=== PATIENT | female | born 1965 | race Two or more races ===

== ENCOUNTER 2019-08-01 12:16 | Emergency (ER) | payer BC ==
[~2019-08-01] VITALS: Ht 170.2 cm; Wt 90.7 kg
[2019-08-01] MEDS: Morphine Sulfate 4mg/ml Inj (IV USE ONLY) IVP ONE ×2 (12:45→13:05)
[2019-08-01] MEDS ORDERED: Isovue-300 100ml vial INJ PRN (12:45)
--- NOTE | 2019-08-01 13:00 | NUR ---
ED Nurse Note: Patient presensts to ER due to abdominal pain x 2 days; reports no N/V or D. Patient states patient has similar pain about 7 month ago after she has some food in [place]. Reports no fever or chills. Patient awake, alert, oriented x 4. Regular, unlabored breathing noted. No guarding noted.
[2019-08-01 13:10] LABS: APPEARANCE,URINE CLEAR; BILIRUBIN, URINE NEGATIVE (NEGATIVE); COLOR,URINE PALE YELLOW; GLUCOSE, URINE (UA) NEGATIVE (NEGATIVE); KETONES,URINE NEGATIVE (NEGATIVE); LEUKOCYTE ESTERASE ,URINE NEGATIVE (NEGATIVE); NITRITE,URINE NEGATIVE (NEGATIVE); PH,URINE 8 (4.5-8.0); PROTEIN,URINE 2+ (NEGATIVE); UROBILINOGEN,URINE NORMAL MG/DL (0.0-1.0)
[2019-08-01 13:16] LABS: BASOPHILS % (AUTO) 1.3 % (0.0-2.0); EOSINOPHILS % (AUTO) 0.8 % (0.0-3.0); HEMATOCRIT 40.1 % (37.0-47.0); HEMOGLOBIN 13.7 G/DL (12.0-16.0); LYMPHOCYTES % (AUTO) 20.3 % (20.0-45.0); MEAN CORPUSCULAR VOLUME 88 FL (80-99); MONOCYTES % (AUTO) 7.8 % (1.0-10.0); NEUTROPHILS % (AUTO) 69.8 % (45.0-75.0); PLATELET COUNT 206 K/UL (150-450); RED BLOOD COUNT 4.55 M/UL (4.20-5.40); RED CELL DISTRIBUTION WIDTH 11.4 % (11.6-14.8); WHITE BLOOD COUNT 7.4 K/UL (4.8-10.8)
[2019-08-01 13:32] LABS: ANION GAP 8 mmol/L (5-15); BLOOD UREA NITROGEN 8 mg/dL (7-18); CALCIUM 8.6 MG/DL (8.5-10.1); CARBON DIOXIDE 30 MMOL/L (21-32); CHLORIDE 103 MMOL/L (98-107); CREATININE 0.7 MG/DL (0.55-1.30); SODIUM 141 MMOL/L (136-145)
[2019-08-01 13:42] LABS: ALANINE AMINOTRANSFERASE 41 U/L (12-78); ALBUMIN 3.5 G/DL (3.4-5.0); ALBUMIN/GLOBULIN RATIO 0.8 (1.0-2.7); ALKALINE PHOSPHATASE 84 U/L (46-116); ASPARTATE AMINO TRANSFERASE 26 U/L (15-37); BILIRUBIN,TOTAL 1.1 MG/DL (0.2-1.0)
[2019-08-01 13:43] LABS: BILIRUBIN,DIRECT 0.2 MG/DL (0.0-0.3)
--- NOTE | 2019-08-01 13:44 | NUR ---
ED Nurse Note: Patient taken to CT via gurney by olu Parish.
--- NOTE | 2019-08-01 14:11 | Diagnostic Imaging Report ---
Indication: Abdominal pain Technique: Continuous helical transaxial imaging of the abdomen and pelvis was obtained from the lung bases to the pubic symphysis during intravenous contrast administration. Coronal 2-D reformats were also obtained. Study obtained in a Siemens sensation [address] Automatic Exposure Control was utilized. Total Dose length Product (DLP): 1128.[address] Dose Index Volume (CTDIvol): 18.4 mGy Comparison: None Findings: There is mild posterior basilar atelectasis. Cholecystectomy noted. There is mild bilateral hydroureteronephrosis demonstrated. There are no definite stones identified. Image quality is limited because of beam starvation artifact. The appendix is normal. The liver and spleen, pancreas and adrenal glands appear normal. There is no evidence of bowel obstruction. The uterus is noted. Bladder is unremarkable IMPRESSION: Mild bilateral hydroureteronephrosis. No definite obstructing stone identified. Consider pyelonephritis/UTI. Correlate clinically. Normal appendix. Status post cholecystectomy [place] [facility] [place] [employer] and the scans are performed using dose optimization techniques as appropriate to a performed exam including Automatic Exposure control.
[2019-08-01] MEDS ORDERED: Lidocaine 2% Visc 15ml soln ORAL ONE (14:15)
[2019-08-01] MEDS ORDERED: Dicyclomine HCl 10mg/5ml oral soln ORAL ONE (14:15)
[2019-08-01] MEDS ORDERED: Mylanta II UD 30ml ORAL ONE (14:15)
[2019-08-01] MEDS ORDERED: RANITIDINE HCL150 MG ORAL (14:30)
[2019-08-01] MEDS ORDERED: COLACE100 MG ORAL (14:30)
[2019-08-01] MEDS ORDERED: SIMETHICONE80 MG ORAL (14:30)
[2019-08-01 14:35] VITALS: BP 133/61
--- NOTE | 2019-08-01 14:36 | NUR ---
ER DISCHARGE NOTE: Patient is cleared to be discharged per ERMD, pt is aox4, on room air, with stable vital signs. pt was given dc and prescription instructions, pt was able to verbalize understanding, pt id band and iv site removed without complications. pt is able to ambulate with steady gait. pt took all belongings.
--- NOTE | 2019-08-02 16:31 | Emergency Room Report ---
History of Present Illness General Chief Complaint: Abdominal Pain Source: Patient Present Illness HPI 53-year-old female presents ED for evaluation. Complaining of abdominal pain for the last 3 days. Pain is generalized, sharp, 8 out of 10, nonradiating. Sometimes her abdomen feels bloated then resolves. Notes nausea, denies vomiting. Denies any diarrhea. Denies fevers or chills. No other aggravating relieving factors. Denies any other associated symptoms Allergies: Coded Allergies: No Known Allergies (Unverified , 08/01/19) Patient History Past Medical History: none Past Surgical History: none Pertinent Family History: none Social History: Denies: smoking, alcohol use, drug use Now: No Immunizations: UTD Reviewed Nursing Documentation: PMH: Agreed; PSxH: Agreed Nursing Documentation-PMH Past Medical History: No Stated History Review of Systems All Other Systems: negative except mentioned in HPI Physical Exam Vital Signs Date Time Temp Pulse Resp B/P (MAP) Pulse Ox O2 Delivery O2 Flow Rate FiO2 08/01/19 12:30 99.7 85 15 113/77 (89) 98 Room Air Sp02 EP Interpretation: reviewed, normal General Appearance: no apparent distress, alert, GCS 15, non-toxic Head: normocephalic, atraumatic Eyes: bilateral eye normal inspection, bilateral eye PERRL ENT: hearing grossly normal, normal pharynx, no angioedema, normal voice Neck: full range of motion, supple/symm/no masses Respiratory: chest non-tender, lungs clear, normal breath sounds, speaking full sentences Cardiovascular #1: regular rate, rhythm, no edema Cardiovascular #2: 2+ carotid (R), 2+ carotid (L), 2+ radial (R), 2+ radial (L) , 2+ dorsalis pedis (R), 2+ dorsalis pedis (L) Gastrointestinal: normal bowel sounds, soft, non-distended, guarding, tenderness Rectal: deferred Genitourinary: normal inspection, no CVA tenderness Musculoskeletal: back normal, normal range of motion, gait/station normal, non- tender Neurologic: alert, motor strength/tone normal, oriented x3, sensory intact, responsive, speech normal Psychiatric: judgement/insight normal, memory normal, mood/affect normal, no suicidal/homicidal ideation Reflexes: 3+ bicep (R), 3+ bicep (L), 3+ tricep (R), 3+ tricep (L), 3+ knee (R) , 3+ knee (L) Skin: no rash Lymphatic: no adenopathy Medical Decision Making Diagnostic Impression: Primary Impression: Abdominal pain Qualified Codes: R10.84 - Generalized abdominal pain ER Course Hospital Course 53-year-old F presents to ED with abdominal pain Differential diagnosis includes-appendicitis, cholecystitis, small bowel obstruction, gastritis, Clinical course Patient placed on stretcher. After initial history and physical I ordered labs , IV fluids, pain medications and CT scan Labs - no leukocytosis, electrolytes ok, LFTs normal, UA unremarkable CT scan shows bilateral hydronephrosis. no kidney stone. no other acute process some fecal impaction noted when I reviewed the CT Discussed findings with patient. No acute process. Vitals stable. Will discharge to home. States she has a PMD. Would benefit from GI evaluation as she has had similar presentations of pain in the past all started after a trip to [place] several months ago. I feel this is a highly complex case requiring extensive working including EKG/ Rhythm strip, Xray/CT/US, Blood/urine lab work, repeat exams while in ED, and administration of strong opiates/narcotics for pain control, admission to hospital or close patient follow up. Diagnosis - abdominal pain Stable and discharged to home with Rx Simethicone, Zantac, Colace. Followup with PMD. Return to ED if symptoms recur or worsen Labs Test 08/01/19 12:55 White Blood Count 7.4 K/UL (4.8-10.8) Red Blood Count 4.55 M/UL (4.20-5.40) Hemoglobin 13.7 G/DL (12.0-16.0) Hematocrit 40.1 % (37.0-47.0) Mean Corpuscular Volume 88 FL (80-99) Mean Corpuscular Hemoglobin 30.1 PG (27.0-31.0) Mean Corpuscular Hemoglobin Concent 34.1 G/DL (32.0-36.0) Red Cell Distribution Width 11.4 % (11.6-14.8) Platelet Count 206 K/UL (150-450) Mean Platelet Volume 6.2 FL (6.5-10.1) Neutrophils (%) (Auto) 69.8 % (45.0-75.0) Lymphocytes (%) (Auto) 20.3 % (20.0-45.0) Monocytes (%) (Auto) 7.8 % (1.0-10.0) Eosinophils (%) (Auto) 0.8 % (0.0-3.0) Basophils (%) (Auto) 1.3 % (0.0-2.0) Urine Color Pale yellow Urine Appearance Clear Urine pH 8 (4.5-8.0) Urine Specific [place] 1.010 (1.005-1.035) Urine Protein 2+ (NEGATIVE) Urine Glucose (UA) Negative (NEGATIVE) Urine Ketones Negative (NEGATIVE) Urine Blood 4+ (NEGATIVE) Urine Nitrite Negative (NEGATIVE) Urine Bilirubin Negative (NEGATIVE) Urine Urobilinogen Normal MG/DL (0.0-1.0) Urine Leukocyte Esterase Negative (NEGATIVE) Urine RBC 5-10 /HPF (0 - 2) Urine WBC 0 /HPF (0 - 2) Urine Squamous Epithelial Cells Few /LPF (NONE/OCC) Urine Bacteria Few /HPF (NONE) Sodium Level 141 MMOL/L (136-145) Potassium Level 4.0 MMOL/L (3.5-5.1) Chloride Level 103 MMOL/L (98-107) Carbon Dioxide Level 30 MMOL/L (21-32) Anion Gap 8 mmol/L (5-15) Blood Urea Nitrogen 8 mg/dL (7-18) Creatinine 0.7 MG/DL (0.55-1.30) Estimat Glomerular Filtration Rate > 60 mL/min (>60) Glucose Level 106 MG/DL (74-106) Calcium Level 8.6 MG/DL (8.5-10.1) Total Bilirubin 1.1 MG/DL (0.2-1.0) Direct Bilirubin 0.2 MG/DL (0.0-0.3) Aspartate Amino Transf (AST/SGOT) 26 U/L (15-37) Alanine Aminotransferase (ALT/SGPT) 41 U/L (12-78) Alkaline Phosphatase 84 U/L (46-116) Total Protein 7.7 G/DL (6.4-8.2) Albumin 3.5 G/DL (3.4-5.0) Globulin 4.2 g/dL Albumin/Globulin Ratio 0.8 (1.0-2.7) Lipase 99 U/L (73-393) CT/MRI/US Diagnostic Results CT/MRI/US Diagnostic Results : Imaging Test Ordered: CT A/P Impression Findings: There is mild posterior basilar atelectasis. Cholecystectomy noted. There is mild bilateral hydroureteronephrosis demonstrated. There are no definite stones identified. Image quality is limited because of beam starvation artifact. The appendix is normal. The liver and spleen, pancreas and adrenal glands appear normal. There is no evidence of bowel obstruction. The uterus is noted. Bladder is unremarkable Last Vital Signs Date Time Temp Pulse Resp B/P (MAP) Pulse Ox O2 Delivery O2 Flow Rate FiO2 08/01/19 14:35 98.0 80 18 133/61 99 Room Air Status: improved Disposition: HOME, SELF-CARE Condition: Stable Scripts Docusate Sodium* (COLACE*) 100 Mg Capsule 100 MG ORAL TWICE A DAY, #30 CAP Prov: Kulwinder Lorenzo MD 08/01/19 Simethicone* (SIMETHICONE*) 80 Mg Tab.chew 80 MG ORAL Q8H PRN for GAS PAIN, #20 TAB 0 Refills Prov: Kulwinder Lorenzo MD 08/01/19 Ranitidine Hcl* (ZANTAC*) 150 Mg Tablet 150 MG ORAL TWICE A DAY, #30 TAB Prov: Kulwinder Lorenzo MD 08/01/19 Patient Instructions: Abdominal Pain, Adult Kulwinder Lorenzo MD Aug 02, 2019 16:31
== END 2019-08-01 14:35 | disposition home or self-care (01) ==
LOC: EMR 12:56
DX: R10.84 Generalized abdominal pain (principal)
CPT/HCPCS: 36415; 74177; 80053; 81003; 82248; 83690; 85025; 96361; 96374; 99284; J7030; Q9967; S0028; J2405

== ENCOUNTER 2019-08-22 10:39 | Day surgery (SDC) | payer BC ==
[~2019-08-22] VITALS: Ht 170.2 cm; Wt 94.3 kg
[2019-08-22] VITALS (7 sets, daily range): BP systolic 120–129; BP diastolic 75–79
[~2019-08-22 10:39] MED LIST: COLACE100 MG ORAL; LR 1000ml 1,000 ML IV SCH; RANITIDINE HCL150 MG ORAL; SIMETHICONE80 MG ORAL
--- NOTE | 2019-08-22 11:06 | Anethesia Preoperative Eval ---
Anesthesia Pre-op PMH/ROS General Date of Evaluation: Aug 22, 2019 Time of Evaluation: 11:27 Anesthesiologist: Jigna Reyez CRNA ASA Score: ASA 1 Mallampati Score Class I : Soft palate, uvula, fauces, pillars visible Class II: Soft palate, uvula, fauces visible Class III: Soft palate, base of uvula visible Class IV: Only hard plate visible Mallampati Classification: Class III Surgeon: Alex Diagnosis: Colon screening, GERD Surgical Procedure: Colonoscopy, EGD diagnostic Anesthesia History: none Family History: no anesthesia problems Allergies: Coded Allergies: No Known Allergies (Unverified , 08/01/19) Medications: see eMAR Patient NPO?: Yes NPO Date: Aug 22, 2019 NPO Time: 00:00 Past Medical History Cardiovascular: Denies: HTN, CAD, NM, valve dz, arrhythmia, other Pulmonary: Reports: ISAAC - BiPAP at night; Denies: asthma, COPD, other Gastrointestinal/Genitourinary: Denies: GERD, CRI, ESRD, other Neurologic/Psychiatric: Denies: dementia, CVA, depression/anxiety, TIA, other Endocrine: Denies: DM, hypothyroidism, steroids, other HEENT: Reports: other - thyroid nodule; Denies: cataract (L), cataract (R), glaucoma, [place] (L), [place]TON (R) Hematology/Immune: Denies: anemia, DVT, bleeding disorder, other Musculoskeletal/Integumentary: Denies: OA, RA, DJD, DDD, edema, other Other: obesity PMH Narrative: as noted above Anesthesia Pre-op Phys. Exam Physician Exam Constitutional: NAD Neurologic: other - alert & oriented x3 Cardiovascular: RRR Respiratory: CTA Gastrointestinal: S/NT/ND, other - obese Airway Exam Mallampati Score: Class III MO: full Neck: FROM TMD: > 3 FB ROM: full Dentures: no upper, no lower Anesthesia Pre-op A/P Studies Pre-op Studies: EKG - NSR Risk Assessment & Plan Assessment: ASA 2, ok to proceed Plan: MAC Status Change Before Surgery: No Pre-Antibiotics Given Within 1 Hr of Incision: Jigna Horner CRNA Aug 22, 2019 11:06
--- NOTE | 2019-08-22 11:20 | NUR ---
Patient stated that medication :Ranitidine and Simethicone will be started post colonoscopy.
[2019-08-22] MEDS ORDERED: Lidocaine 1% MPF 10mg/ml 5ml ONE (11:30)
[2019-08-22] MEDS ORDERED: LR 1000ml ONE (11:30)
[2019-08-22] MEDS ORDERED: Propofol 200mg/20ml IV ONE (11:30)
--- NOTE | 2019-08-22 11:35 | Pre-Procedure Note/Attestation ---
Pre-Procedure Note/Attestation Complete Prior to Procedure Planned Procedure: not applicable Procedure Narrative: esophagogastroduodenoscopy and colonoscopy Indications for Procedure Pre-Operative Diagnosis: screening colon, GERD Attestation I attest that I discussed the nature of the procedure; its benefits; risks and complications; and alternatives (and the risks and benefits of such alternatives ), prior to the procedure, with the patient (or the patient's legal union representative). I attest that, if there was a reasonable possibility of needing a blood transfusion, the patient (or the patient's legal union representative) was given the [facility] standardized written summary, pursuant to the [place] Blood Safety Act ([place] Health and Safety Code # 1645, as amended). I attest that I re-evaluated the patient just prior to the surgery and that there has been no change in the patient's H&P, except as documented below: Feng Johnson MD Aug 22, 2019 11:35
--- NOTE | 2019-08-22 11:35 | Short Stay Surgery H&P ---
History of Present Illness History of Present Illness Chief Complaint screening colon, GERD HPI Vinh Richardson is a 53 year old female who was admitted on for GERD Patient History Allergies: Coded Allergies: No Known Allergies (Unverified , 08/01/19) PAST MEDICAL HISTORY: (1) Abdominal pain Medication History Scheduled Docusate Sodium* (Colace*), 100 MG ORAL TWICE A DAY Ranitidine Hcl* (Zantac*), 150 MG ORAL TWICE A DAY Scheduled PRN Simethicone* (Simethicone*), 80 MG ORAL Q8H PRN for GAS PAIN Review of Systems Cardiovascular: Reports: no symptoms Respiratory: Reports: no symptoms Skeletal: Reports: no symptoms Gastrointestinal: Reports: gastro esophageal reflux disease Genitourinary: Reports: no symptoms Neurologic: Reports: no symptoms Endocrine: Reports: no symptoms Hematologic: Reports: no symptoms Physical Exam Vital Signs Last Vital Signs Date Time Temp Pulse Resp B/P (MAP) Pulse Ox O2 Delivery O2 Flow Rate FiO2 08/22/19 11:14 97.9 68 18 126/76 97 Room Air Skin: normal HENT: normal Heart: normal Lungs: normal Abdomen: normal Extremities: normal Plan Plan of Care esophagogastroduodenoscopy and colonoscopy Attestation Are the patient's medical conditions optimized for surgery? Attestation Response: yes Feng Johnson MD Aug 22, 2019 11:35
--- NOTE | 2019-08-22 11:57 | Immediate Post-Op Evaluation ---
Immediate Post-Op Evalulation Immediate Post-Op Evalulation Procedure: egd, colonoscopy diagnostic Date of Evaluation: Aug 22, 2019 IV Fluids: LR 500 ML Blood Pressure Systolic: 129 Blood Pressure Diastolic: 79 Pulse Rate: 74 Respiratory Rate: 16 O2 Sat by Pulse Oximetry: 99 Pain Score (1-10): 0 Nausea: No Vomiting: No Complications NONE Patient Status: awake, patent Hydration Status: adequate Given Within 1 Hr of Incision: No Jigna Reyez CRNA Aug 22, 2019 11:57
--- NOTE | 2019-08-22 12:11 | Endoscopy Procedure Note ---
Endoscopy Procedure Note General Indication for Procedure: screening colon, GERD Procedures Performed: EGD, colonoscopy Operative Findings/Diagnosis: gastritis Specimen: yes Pt Tolerated Procedure Well: Yes Estimated Blood Loss: none Anesthesia Anesthesiologist: bartolo Anesthesia: MAC Inserted Devices Implant(s) used?: No Quality Quality of Bowel Preparation: Good Did scope reach the cecum?: Yes Was there any complications?: No GI Core Measures 50 yrs or older w/o bx or poly: No 10yrs. F/U recommended: Yes If not recommended, why?: Above average risk 18 years or older w/prev. colo: No Feng Johnson MD Aug 22, 2019 12:10
--- NOTE | 2019-08-22 12:51 | 48 Hour Post Anesthesia Eval ---
Post Anesthesia Evaluation Procedure: egd, colonoscopy diagnostic Date of Evaluation: Aug 22, 2019 Time of Evaluation: 12:23 Blood Pressure Systolic: 126 0: 75 Pulse Rate: 63 Respiratory Rate: 22 Temperature (Fahrenheit): 97.4 O2 Sat by Pulse Oximetry: 97 Airway: patent Nausea: No Vomiting: No Pain Intensity: 0 Hydration Status: adequate Cardiopulmonary Status: stable Mental Status/LOC: patient returned to baseline Follow-up Care/Observations: per GI Post-Anesthesia Complications: none Follow-up care needed: N/A Jigna Reyez CRNA Aug 22, 2019 12:51
--- NOTE | 2019-08-22 15:45 | Procedure Note ---
DATE OF PROCEDURE: 08/22/2019 SURGEON: Feng Johnson M.D. PROCEDURE: Upper endoscopy biopsy and colonoscopy. ANESTHESIA: Per Jigna BARKLEY. INSTRUMENT: Olympus adult flexible upper endoscope and colonoscope. INDICATION: Screening colonoscopy evaluation, chronic GERD, and abdominal pain. REASON FOR PROCEDURE: The procedure, risks, benefits, and possible consequences, including hemorrhage, aspiration, perforation and infection, and alternative treatments, were explained to the patient/legal guardian by Dr. Feng Johnson and the patient/legal guardian understood and accepted these risks. PROCEDURE IN DETAIL: After informed consent was obtained and the patient was adequately sedated, Olympus upper endoscope was advanced from the mouth into second portion of duodenum and retroflexion was performed in the stomach. The patient has evidence of diffuse gastritis. Random biopsy from antrum and body was obtained to rule out H. pylori infection. Otherwise, the rest of the upper endoscopic examination was grossly within limits. At this time, the upper endoscope was retrieved and the patient was turned over for colonoscopy. First, rectal exam was performed, which was normal. Then, the scope was the advance from the rectum into cecum and subsequently into terminal ileum. Quality of prep was very good. The patient had normal colonoscopy examination. No mass, polyp, diverticula, or any other pathology was seen. Retroflexion of rectum showed evidence of small nonbleeding internal hemorrhoids. SUMMARY OF FINDINGS: 1. Gastritis, status post biopsy. 2. Small nonbleeding internal hemorrhoids. RECOMMENDATIONS: Follow up biopsy results and treat accordingly. Feng Johnson M.D. DR: GUDELIA JOB#: [id number] CC:
== END 2019-08-22 13:15 | disposition home or self-care (01) ==
LOC: GAS 10:39
DX: Z12.11 Encounter for screening for malignant neoplasm of colon (principal); K21.9 Gastro-esophageal reflux disease without esophagitis; R10.9 Unspecified abdominal pain; K64.8 Other hemorrhoids; K29.50 Unspecified chronic gastritis without bleeding
CPT/HCPCS: 43239; 45378; J2704; J7120; 94003; 94150